=== PATIENT | male | born 1970 | race Caucasian/White ===

== ENCOUNTER 2019-10-30 16:22 | Emergency (ER) | payer OTHER ==
[~2019-10-30] VITALS: Ht 180.3 cm; Wt 112.0 kg
[2019-10-30] MEDS ORDERED: XANAX1 MG PO (17:05)
[2019-10-30] MEDS ORDERED: LISINOPRIL30 MG PO (17:06)
[2019-10-30] MEDS ORDERED: DESYREL150 MG PO (17:06)
[2019-10-30] MEDS ORDERED: CLONIDINE HCL0.2 M2 PO (17:06)
[2019-10-30] MEDS ORDERED: FUROSEMIDE 20 M20 MG PO (17:06)
[2019-10-30] MEDS ORDERED: PRAZOSIN 1 MG CA1 M1 PO (17:06)
[2019-10-30] MEDS ORDERED: HYDROCHLOROTHIA25 M1 PO (17:07)
[2019-10-30] MEDS ORDERED: NAPROSYN500 MG PO (18:50)
[2019-10-30] MEDS ORDERED: NORCO 5-325 TA1 EAC2 PO (18:50)
[2019-10-30 19:02] VITALS: BP 158/84
== END 2019-10-30 19:02 | disposition home or self-care (01) ==
LOC: ER 16:22
DX: S46.811A Strain of other muscles, fascia and tendons at shoulder and upper arm level, right arm, initial encounter (principal); S50.01XA Contusion of right elbow, initial encounter; F17.210 Nicotine dependence, cigarettes, uncomplicated; Z88.0 Allergy status to penicillin; Z88.5 Allergy status to narcotic agent; Z79.899 Other long term (current) drug therapy; W20.8XXA Other cause of strike by thrown, projected or falling object, initial encounter; Y93.89 Activity, other specified; Y92.69 Other specified industrial and construction area as the place of occurrence of the external cause; Y99.9 Unspecified external cause status